=== PATIENT | female | born 1990 ===

== ENCOUNTER 2018-02-12 13:15 | Emergency (ER) | payer MEDICAID, OTHER ==
[2018-02-12 13:20] VITALS: RESP 16; O2SAT 98
--- NOTE | 2018-02-12 14:34 | ED PDOC ---
HPI: Female Pain Time Seen by Provider: 02/12/18 13:48 Chief Complaint (Nursing): Female Genitourinary Chief Complaint (Provider): Vaginal spotting History Per: Patient History/Exam Limitations: no limitations Additional Complaint(s): Pt reports vaginal spotting X 2 days, blood upon wiping, associated with crampy R sided lower abdominal pain, intermittent. Denies fever, nausea, vomiting. No care. Abnormal Vaginal Bleeding: Yes Last Menstral Period: 11/06/17 : 2 Para: 0 Miscarriage: 1 Past Medical History Reviewed: Nursing Documentation, Vital Signs Vital Signs: Last Vital Signs Temp 98 F 02/12/18 13:17 Pulse 97 H 02/12/18 13:17 Resp 16 02/12/18 13:17 BP 115/68 02/12/18 13:17 Pulse Ox 98 02/12/18 13:17 - Medical History PMH: No Chronic Diseases - Surgical History Surgical History: No Surg Hx - Family History Family History: States: Unknown Family Hx - Social History Current smoker - smoking cessation education provided: No Alcohol: None - Home Medications Home Medications: Ambulatory Orders Medication Instructions Recorded Vit Calc,Iron,Folic 1 each PO DAILY #30 tablet 02/12/18 [ Vitamins] - Allergies Allergies/Adverse Reactions: Allergies Allergy/AdvReac Type Severity Reaction Status Date / Time No Known Allergies Allergy Verified 02/12/18 13:17 Review of Systems Constitutional: Negative for: Fever, Chills Cardiovascular: Negative for: Chest Pain Respiratory: Negative for: Cough, Shortness of Breath Gastrointestinal: Positive for: Abdominal Pain. Negative for: Nausea, Vomiting , Diarrhea Genitourinary Female: Positive for: Vaginal Bleeding, Pelvic Pain. Negative for : Dysuria, Hematuria, Vaginal Discharge Skin: Negative for: Rash, Lesions Neurological: Negative for: Headache, Dizziness Physical Exam - Reviewed Nursing Documentation Reviewed: Yes Vital Signs Reviewed: Yes - Physical Exam Appears: Positive for: Well, No Acute Distress Head Exam: Positive for: ATRAUMATIC, NORMAL INSPECTION Skin: Positive for: Normal Color, Warm, Dry Eye Exam: Positive for: Normal appearance, EOMI, PERRL Cardiovascular/Chest: Positive for: Regular Rate, Rhythm Respiratory: Positive for: Normal Breath Sounds Gastrointestinal/Abdominal: Positive for: Normal Exam, Bowel Sounds, Soft. Negative for: Tenderness, Guarding, Rebound Extremity: Positive for: Normal ROM Neurologic/Psych: Positive for: Alert, Oriented - Laboratory Results Result Diagrams: 02/12/18 15:01 02/12/18 15:01 - ECG O2 Sat by Pulse Oximetry: 98 Medical Decision Making Medical Decision Makin yo with vaginal spotting. - labs - pelvic ultrasound Accession No. : [id number] Patient Name / ID : SHEBA YOO / [id number] Exam Date : 02/12/2018 16:48:07 ( Approved ) Study Comment : Sex / Age : F / 27Y Creator : Gonzalo Curry MD Dictator : Gonzalo Curry MD Boiler Attendant : Proof Carrier : Gonzalo Curry MD Approver2 : Report Date : 02/12/2018 18:09:27 My Comment : Date of service: 02/12/2018 PROCEDURE: Limited ultrasound HISTORY: Vag spotting COMPARISON: None available. TECHNIQUE: Standard protocol for this study/examination. FINDINGS: Variable presentation. Posterior Placenta. No evidence of abruption or previa Gestational age derived from LMP 14 weeks. ABDOULAYE 08/13/2018.. Gestational age derived from the following biometric parameters thirteen weeks. ABDOULAYE 08/20/2018. Biparietal diameter 2.07 cm Head circumference 7.38 cm Abdominal circumference 6.10 cm Femur length 0.9 cm Estimated weight 64.4 g Calculated cardiac rate 157 beats per min. Closed cervix measuring 3.99 cm IMPRESSION: Thirteen weeks live intrauterine gestation. Gestational concordance documented. Disposition - Clinical Impression Clinical Impression: Threatened in second trimester - Disposition [facility] Disposition: Routine/Home Disposition Time: 18:12 Condition: GOOD Prescriptions: Vit Calc,Iron,Folic [ Vitamins] 1 each PO DAILY #30 tablet Instructions: Threatened Miscarriage Forms: [facility] (Gu[place]ian)
[2018-02-12 15:06] LABS: BASO % 0.1 % (0.0-2.0); EOS % 0.1 % (0.0-4.0); HEMOGLOBIN 13.3 g/dL (12.0-16.0); LYMPH # 1.1 K/uL (1.0-4.3); LYMPH % 12.7 % (20.0-40.0); MEAN CORPUSCULAR HEMOGLOBIN 30.9 pg (27.0-31.0); MEAN CORPUSCULAR HGB CONC 34.7 g/dL (33.0-37.0); MEAN PLATELET VOLUME 9.6 fl (7.2-11.7); MONO # 0.4 K/uL (0.0-0.8); NEUT # 7.4 K/uL (1.8-7.0); NEUT % 83.1 % (50.0-75.0); NRBC % 0.1 % (0.0-0.0); RBC 4.29 Mil/uL (3.80-5.20); WHITE BLOOD COUNT 8.9 K/uL (4.8-10.8)
[2018-02-12 15:18] LABS: SQUAMOUS EPITHIAL 4 /hpf (0-5); URINE AMORPHOUS SEDIMENT RARE /ul (<OCC); URINE BACTERIA RARE (<OCC); URINE BILIRUBIN NEGATIVE (NEGATIVE); URINE BLOOD MODERATE (NEGATIVE); URINE CLARITY SLIGHTY-CLOUDY (Clear); URINE COLOR YELLOW (YELLOW); URINE GLUCOSE (UA) NEG (Normal); URINE LEUKOCYTE ESTERASE NEG Leu/uL (Negative); URINE PROTEIN NEGATIVE (NEGATIVE); URINE UROBILINOGEN 0.2-1.0 mg/dL (0.2-1.0)
[2018-02-12 15:21] LABS: ALB/GLOB RATIO 1.2 (1.0-2.1); ALT/SGPT 43 U/L (9-52); AST/SGOT 40 U/L (14-36); BLOOD UREA NITROGEN 8 mg/dl (7-17); CALCIUM 9.1 mg/dL (8.4-10.2); GFR AFRICAN-AMERICAN > 60; GFR NON-AFRICAN AMERICAN > 60
--- NOTE | 2018-02-12 18:11 | US ---
Date of service: 02/12/2018 PROCEDURE: Limited ultrasound HISTORY: Vag spotting COMPARISON: None available. TECHNIQUE: Standard protocol for this study/examination. FINDINGS: Variable presentation. Posterior Placenta. No evidence of abruption or previa Gestational age derived from LMP 14 weeks. ABDOULAYE 08/13/2018.. Gestational age derived from the following biometric parameters thirteen weeks. ABDOULAYE 08/20/2018. Biparietal diameter 2.07 cm Head circumference 7.38 cm Abdominal circumference 6.10 cm Femur length 0.9 cm Estimated weight 64.4 g Calculated cardiac rate 157 beats per min. Closed cervix measuring 3.99 cm IMPRESSION: Thirteen weeks live intrauterine gestation. Gestational concordance documented.
[2018-02-12 18:42] VITALS: BP 116/70; PULSE 84; TEMP 97.9
== END 2018-02-12 18:28 | disposition home or self-care (01) ==
LOC: H.ER 13:15
DX: O20.0 Threatened abortion (principal); Z3A.13 13 weeks gestation of pregnancy

== ENCOUNTER 2018-08-15 15:57 | Emergency (ER) | payer MEDICAID ==
--- NOTE | 2018-08-16 08:33 | OBHP ---
Datetime: 08/15/2018 16:21 IP Adm Impression: Term, intrauterine IP Admit Plan: Observation/Evaluation; Discharge home Admit Comment, IP Provider: 27yo IUP at 40+2w was sent from [facility] for NST since her NST in the clinic was non-reactive. Pt reports she feels good movement. Denies contractions, vaginal blee ding, and loss of fluid per the vagina. ROS: negative except for stated above in HPI ObHx: 1 misscarriage 3-4 years ago PMH: denies PSH: denies Allergies: N.K.D.A. PSoH denies smoking ETOH drugs Physical: Heart : s1 and S2 appreciated on exam. Lungs: clear bilaterally Abdomen: Gravid, non-tender; +bs Extremities: No lower extremity edema. A: 27yo with IUP at 40+2w presents for non-reactive NST in CHF - NST reactive - Patient scheduled for IOL 08/20/18 for late term @ 8m - Patient to go to her [facility] tomorrow 08/16/18 - Patient has a follow up appt in [facility] 08/19/[address] Sherry Mosher, PGY1 Pelvic Type - PN: Not Done Extremities - PN: Normal Abdomen - PN: Normal Back - PN: Normal Breast - PN: Not Done Lungs - PN: Normal Heart - PN: Normal Thyroid - PN: Not Done Neurologic - PN: Normal HEENT - PN: Normal General - PN: Normal FHR - Baseline A Provider: 135 Contraction Comments Provider: no contractions EGA AdmitDate IP: 40.0 Vital Signs Provider: Reviewed; Within Normal Limits IP Chief Complaint: Decreased movement NICHD Variability Prov Fetus A: Moderate 6-25bpm NICHD Accel Fetus A IP Provider: [id number] FHR Category Provider Fetus A: Category I NICHD Decel Fetus A IP Provider: None Genitourinary Exam: Not Done DTRs - PN: Not Done
== END 2018-08-15 16:10 | disposition home or self-care (01) ==
LOC: H.EROB2 15:57
DX: O76 Abnormality in fetal heart rate and rhythm complicating labor and delivery (principal); O48.0 Post-term pregnancy; Z3A.40 40 weeks gestation of pregnancy

== ENCOUNTER 2018-08-20 19:56 | Inpatient (IN) | payer MEDICAID ==
[2018-08-20 20:12] VITALS: BMI 27.1
[2018-08-20] MEDS ORDERED: Lactated Ringer's 1,000 ML IV ONE (20:39)
[2018-08-20] MEDS ORDERED: Oxytocin 30 UNIT 30 UNITS/500 ML BAG IV ONE (20:41)
[2018-08-20] MEDS ORDERED: OXYTOCIN/0.9 % NS 20 UNIT/1,000 ML BAG IV SCH (20:45)
[2018-08-20 21:22] LABS: BASO % 0.2 % (0.0-2.0); EOS % 0.5 % (0.0-4.0); HEMOGLOBIN 13.1 g/dL (12.0-16.0); LYMPH # 1.4 K/uL (1.0-4.3); LYMPH % 18.7 % (20.0-40.0); MEAN CELL VOLUME 91.5 fl (81.0-99.0); MEAN CORPUSCULAR HGB CONC 33.8 g/dL (33.0-37.0); MEAN PLATELET VOLUME 10.6 fl (7.2-11.7); MONO # 0.4 K/uL (0.0-0.8); NEUT # 5.4 K/uL (1.8-7.0); NEUT % 74.6 % (50.0-75.0); RBC 4.24 Mil/uL (3.80-5.20); RED CELL DISTRIBUTION WIDTH 12.9 % (11.5-14.5); WHITE BLOOD COUNT 7.3 K/uL (4.8-10.8)
--- NOTE | 2018-08-20 23:38 | OBADHP ---
Datetime: 08/20/2018 21:03 Admit Comment, IP Provider: 27yo IUP at 41wK based on LMP of 11/06/18 admitted for Induction o f labor for late term. Pt endorses good movement. Denies contractions, vaginal bleeding, and l oss of fluid per the vagina. ROS: negative except for stated above in HPI ObHx: 1 misscarriage 3-4 years ago; Dr. Jiménez and was last checked yesterday, one day prior to adm ission, and her exam was closed. PMH: denies PSH: denies Allergies: N.K.D.A. PSoH denies smoking ETOH drugs Labs:HIV: negative; GBS: negative; Rubella: immune; Gc/CL: negative; RPR: non-reactive; HbsAg: neg ative; ABO: O+; Antibody: negative Physical: Vital signs are stable. Heart : s1 and S2 appreciated on exam. Lungs: clear bilaterally Abdomen: Gravid, non-tender; +bs Extremities: No lower extremity edema._ Bedside ultrasound: Cephalic presentation. A: 27yo with IUP at 41wks admitted for IOL for late term. - Admit to L and D - CBC and Type and Screen - NST reactive- category 1 - Anesthesia consult - NPO - Induction with Cytotec 50mcg Q4H to begin after patient has a meal. Discussed with Dr. Sweta Mosher, PGY1 Addendum by Dr. Sol: I have evaluated the patient independently and I agree with the above Pelvic Type - PN: Adequate Extremities - PN: Normal Abdomen - PN: Normal Back - PN: Normal Breast - PN: Not Done Lungs - PN: Normal Heart - PN: Normal Thyroid - PN: Normal Neurologic - PN: Normal HEENT - PN: Normal General - PN: Normal FHR - Baseline A Provider: 150 Vital Signs Provider: Reviewed; Within Normal Limits IP Chief Complaint: Scheduled induction of labor NICHD Variability Prov Fetus A: Moderate 6-25bpm NICHD Accel Fetus A IP Provider: 15X15 FHR Category Provider Fetus A: Category I NICHD Decel Fetus A IP Provider: None Genitourinary Exam: Normal DTRs - PN: Not Done EGA AdmitDate IP: 40.5 IP Adm Impression: Postterm, intrauterine ; No Active Labor IP Admit Plan: Admit to unit; Initiate labor induction protocol Datetime: 08/15/2018 16:21 Contraction Comments Provider: no contractions
[2018-08-21] MEDS: Lactated Ringer's 1,000 ML IV SCH ×3 (07:30→17:40)
[2018-08-21] MEDS ORDERED: Nalbuphine HCL 10 mg/ml Ampule IVP PRN ×2 (17:28→21:35)
[2018-08-21] MEDS ORDERED: Nalbuphine 20 mg/ml Inj (10 ml) ONE ×2 (17:36→21:43)
[2018-08-22] MEDS ORDERED: Lactated Ringer's 1,000 ML IV SCH (00:43)
[2018-08-22] MEDS ORDERED: Fentanyl/Bupivacaine HCl 250 ML EPI ONE (01:07)
[2018-08-22] MEDS ORDERED: Lidocaine 1% MPF (30 ml) Inj ONE (09:13)
[2018-08-22] MEDS ORDERED: Oxytocin 30 UNIT 30 UNITS/500 ML BAG IV ONE (09:53)
[2018-08-22] MEDS ORDERED: Benzocaine/Menthol SPRAY TOP PRN ×2 (10:28→10:37)
[2018-08-22] MEDS ORDERED: Oxycodone/Acetaminophen 5/325 mg Tab PO PRN ×2 (10:28→10:37)
[2018-08-23 06:39] LABS: BASO % 0.1 % (0.0-2.0); EOS # 0.1 K/uL (0.0-0.7); EOS % 0.4 % (0.0-4.0); HEMOGLOBIN 11.5 g/dL (12.0-16.0); LYMPH # 1.4 K/uL (1.0-4.3); LYMPH % 10.7 % (20.0-40.0); MEAN CELL VOLUME 92.1 fl (81.0-99.0); MEAN CORPUSCULAR HEMOGLOBIN 30.6 pg (27.0-31.0); MEAN CORPUSCULAR HGB CONC 33.2 g/dL (33.0-37.0); MEAN PLATELET VOLUME 9.9 fl (7.2-11.7); MONO # 0.8 K/uL (0.0-0.8); MONO % 6.3 % (0.0-10.0); NEUT # 10.8 K/uL (1.8-7.0); NEUT % 82.5 % (50.0-75.0); NRBC % 0.1 % (0.0-0.0); RBC 3.78 Mil/uL (3.80-5.20); WHITE BLOOD COUNT 13.1 K/uL (4.8-10.8)
--- NOTE | 2018-08-23 08:06 | OBPPN ---
Datetime: 08/23/2018 05:35 PP Pain Prov: Within normal limits PP Nausea Prov: Denies PP Flatus Prov: Yes PP BM Prov: No PP Breasts Prov: Not Done PP Heart Prov: Normal PP Lungs Prov: Normal PP Abdomen/Uterus Prov: Normal PP Lochia Prov: Normal PP Vulva/Perineum Prov: Normal PP CVA Tenderness Prov: Normal PP Extremities Prov: Normal PP C/S Incision Prov: Not Applicable PP Progress Prov: Normal PP Impression Prov: Normal progression PP Plan Prov: Continue present management PP Progress Note Prov: S: 27 yo s/p on 08/22/18, PPD1. Pt was seen and examined at bed side this AM. No overnight events. Pain is minimal. Ambulating and tolerating PO diet without difficu lty. Breast feeding exclusively. Lochia < menses. +Flatus/- BM. Denies dizziness, orthostatic change s, changes in vision, palpitations, chest pain, fever, chills, diarrhea, nausea and vomiting. O: VS: Stable overnight GEN: NAD Cardio: S1S2, no murmurs Lungs: clear breath sounds b/l, no wheezing Abdomen: BS+, appropriate tenderness to palpation. Uterus is firm and at the level of the umbilic us. EXT: No edema, calves non-tender NEURO/PSYCH: AAOx3, no grossly focal deficits, preserved affect and mood. H/H: aCBC: 13.1/38.3 pCBC: pending Assessment/Plan: 27 yo s/p on 08/22/18, PPD1. Pt remains afebrile, tolerating pain. -Regular diet -Anticipate discharge 08/24 -Continue with current management -Encourage and ambulating -Colace 100mg BID -Ibuprofen 600mg q6 for pain Mey Mosher, PGY 1 Attending addendum: I saw and examined the patient at bedside myself. I reviewed the resident note above and agree wit h findings and management. Anticipate DC home tomorrow. Belen Bingham MD IP PP Procedures: None Vital Signs Provider PP: Reviewed; Within Normal Limits
[2018-08-23] MEDS ORDERED: Multivitamin With Minerals Tab PO SCH (09:00)
--- NOTE | 2018-08-23 09:01 | OBDS ---
DELIVERY PERSONNEL Delivery Doctor: Karis Powell MD City Bus Driver: Malissa Osborn RN Anesthesiologist: Dr. Bronson MATERNAL INFORMATION Delivery Anesthesia: Epidural Medications in Delivery: Pitocin 30u/500mL of NS, Lidocaine 1% Placenta Cultured: No Maternal Complications: None Provider Comments: Normal spontaneous vaginal delivery. Patient delivered viable infant with Apgars of 9 and 9 at 1 and 5 minutes respectively. de livered via ESTEVAN position. Placenta delivered spontaneously. Lacerations were repaired, as above. U terus firm and appropriately hemostatic following delivery. Patient tolerated delivery and repair we ll. Estimated blood loss 200 cc. LABOR SUMMARY EDC: 08/15/2018 00:00 No. Babies in Womb: 1 Attempted: No Labor Anesthesia: Epidural LABOR INFORMATION Reason for Induction: Postterm Onset of Labor: 08/22/2018 04:13 Complete Dilatation: 08/22/2018 06:43 Cervical Ripening Agents: Cervidil Oxytocin: N/A Group B Beta Strep: Negative Antibiotics # of Doses: n/a Antibiotics Time of Last Dose: n/a Steroids Given: None Reason Steroids Not Administered: Not Applicable MEMBRANES Membranes Rupture Method: Spontaneous Rupture of Membranes: 08/22/2018 04:35 Length of Rupture (hrs): 5.22 Amniotic Fluid Color: Bloody Amniotic Fluid Amount: Moderate Amniotic Fluid Odor: Normal STAGES OF LABOR Stage 1 hrs: 2 Stage 1 min: 30 Stage 2 hrs: 3 Stage 2 min: 5 Stage 3 hrs: 0 Stage 3 min: 4 Total Time in Labor hrs: 5 Total Time in Labor min: 39 VAGINAL DELIVERY Laceration Extension: First Degree Laceration Type: Vaginal Laceration Repair: Yes Laceration Repair Note: First-degree bilateral vaginal lacerations. Area is infiltrated with 1% lid ocaine. Laceration was repaired with 2.0 repeated without complication. Patient tolerated repair as well. Initial Vag Sponge Count: 15 Final Vag Sponge Count: 15 Initial Vag Sharps Count: 3 Final Vag Sharps Count: 3 Sponge Count Correct: Yes Sharps Count Correct: Yes BABY A INFORMATION Infant Delivery Date/Time: 08/22/2018 09:48 Method of Delivery: Vaginal Born in Route : No : N/A Forceps: N/A Vacuum Extraction: N/A Shoulder Dystocia : No SHOULDER DYSTOCIA BABY A Delivery Date/Time: 08/22/2018 09:48 PRESENTATION/POSITION BABY A Presentation: Cephalic Cephalic Presentation: Vertex Breech Presentation: N/A PLACENTA INFORMATION BABY A Placenta Delivery Time : 08/22/2018 09:52 Placenta Method of Delivery: Spontaneous Placenta Status: Delivered SCORES BABY A Heart Rate 1 min: >100 bpm Resp Effort 1 min: Good Cry Reflex Irritability 1 min: Cough or Sneeze or Pulls Away Muscle Tone 1 min: Active Motion Color 1 min: Body [place], Extremities Blue Resuscitation Effort 1 min: Tactile Stimulation SCORE 1 MIN: 9 Heart Rate 5 min: >100 bpm Resp Effort 5 min: Good Cry Reflex Irritability 5 min: Cough or Sneeze or Pulls Away Muscle Tone 5 min: Active Motion Color 5 min: Body [place], Extremities Blue Resuscitation Effort 5 min: N/A SCORE 5 MIN: 9 INFORMATION BABY A Gestational Age at Delivery: 41.0 Gestational Status: Term Outcome : Liveborn Condition : Stable Infant Sex: Female IDENTIFICATION/MEDS BABY A ID Band Number: [id number] ID Band Location: Left Leg; Left Arm WEIGHT/LENGTH BABY A Birthweight (gms): 3115 Weight (lb): 6 Infant Weight (oz): 14 CORD INFORMATION BABY A No. Cord Vessels: 3 Nuchal Cord : N/A Cord Blood Taken: Yes Suction: None; Mouth
--- NOTE | 2018-08-23 09:06 | OBDS ---
DELIVERY PERSONNEL Delivery Doctor: Karis Powell MD Motion Picture Commentator: Malissa Osborn RN Anesthesiologist: Dr. Bronson MATERNAL INFORMATION Delivery Anesthesia: Epidural Medications in Delivery: Pitocin 30u/500mL of NS, Lidocaine 1% Placenta Cultured: No Maternal Complications: None Provider Comments: Normal spontaneous vaginal delivery. Patient delivered viable infant with Apgars of 9 and 9 at 1 and 5 minutes respectively. de livered via ESTEVAN position. Placenta delivered spontaneously. Lacerations were repaired, as above. U terus firm and appropriately hemostatic following delivery. Patient tolerated delivery and repair we ll. Estimated blood loss 200 cc. LABOR SUMMARY EDC: 08/15/2018 00:00 No. Babies in Womb: 1 Attempted: No Labor Anesthesia: Epidural LABOR INFORMATION Reason for Induction: Postterm Onset of Labor: 08/22/2018 04:13 Complete Dilatation: 08/22/2018 06:43 Cervical Ripening Agents: Cervidil Cervical Ripening Agents: Cytotec @ 50mcg Cervical Ripening Agents: Cytotec @ 50mcg Cervical Ripening Agents: Cytotec @ 50 mcg of cytotec administered PO as per Dr. Sol Cervical Ripening Agents: Cytotec @ 50 MG Oxytocin: N/A Group B Beta Strep: Negative Antibiotics # of Doses: n/a Antibiotics Time of Last Dose: n/a Steroids Given: None Reason Steroids Not Administered: Not Applicable MEMBRANES Membranes Rupture Method: Spontaneous Rupture of Membranes: 08/22/2018 04:35 Length of Rupture (hrs): 5.22 Amniotic Fluid Color: Bloody Amniotic Fluid Amount: Moderate Amniotic Fluid Odor: Normal STAGES OF LABOR Stage 1 hrs: 2 Stage 1 min: 30 Stage 2 hrs: 3 Stage 2 min: 5 Stage 3 hrs: 0 Stage 3 min: 4 Total Time in Labor hrs: 5 Total Time in Labor min: 39 VAGINAL DELIVERY Laceration Extension: First Degree Laceration Type: Vaginal Laceration Repair: Yes Laceration Repair Note: First-degree bilateral vaginal lacerations. Area is infiltrated with 1% lid ocaine. Laceration was repaired with 2.0 repeated without complication. Patient tolerated repair as well. Initial Vag Sponge Count: 15 Final Vag Sponge Count: 15 Initial Vag Sharps Count: 3 Final Vag Sharps Count: 3 Sponge Count Correct: Yes Sharps Count Correct: Yes BABY A INFORMATION Delivery Date/Time: 08/22/2018 09:48 Method of Delivery: Vaginal Born in Route : No : N/A Forceps: N/A Vacuum Extraction: N/A Shoulder Dystocia : No SHOULDER DYSTOCIA BABY A Infant Delivery Date/Time: 08/22/2018 09:48 PRESENTATION/POSITION BABY A Presentation: Cephalic Cephalic Presentation: Vertex Breech Presentation: N/A PLACENTA INFORMATION BABY A Placenta Delivery Time : 08/22/2018 09:52 Placenta Method of Delivery: Spontaneous Placenta Method of Delivery: Spontaneous Placenta Status: Delivered SCORES BABY A Heart Rate 1 min: >100 bpm Resp Effort 1 min: Good Cry Reflex Irritability 1 min: Cough or Sneeze or Pulls Away Muscle Tone 1 min: Active Motion Color 1 min: Body [place], Extremities Blue Resuscitation Effort 1 min: Tactile Stimulation SCORE 1 MIN: 9 Heart Rate 5 min: >100 bpm Resp Effort 5 min: Good Cry Reflex Irritability 5 min: Cough or Sneeze or Pulls Away Muscle Tone 5 min: Active Motion Color 5 min: Body [place], Extremities Blue Resuscitation Effort 5 min: N/A SCORE 5 MIN: 9 INFANT INFORMATION BABY A Gestational Age at Delivery: 41.0 Gestational Status: Term Infant Outcome : Liveborn Infant Condition : Stable Infant Sex: Female Infant Sex: Female IDENTIFICATION/MEDS BABY A ID Band Number: [id number] ID Band Location: Left Leg; Left Arm WEIGHT/LENGTH BABY A Birthweight (gms): 3115 Infant Weight (lb): 6 Infant Weight (oz): 14 CORD INFORMATION BABY A No. Cord Vessels: 3 Nuchal Cord : N/A Cord Blood Taken: Yes Suction: None; Mouth
[2018-08-23] MEDS: Multivitamin With Minerals Tab PO SCH (09:13)
--- NOTE | 2018-08-24 07:22 | OBPPN ---
Datetime: 08/24/2018 05:55 PP Pain Prov: Within normal limits PP Nausea Prov: Denies PP Flatus Prov: Yes PP BM Prov: Yes PP Breasts Prov: Not Done PP Heart Prov: Normal PP Lungs Prov: Normal PP Abdomen/Uterus Prov: Normal PP Lochia Prov: Normal PP Vulva/Perineum Prov: Normal PP CVA Tenderness Prov: Normal PP Extremities Prov: Normal PP C/S Incision Prov: Not Applicable PP Progress Prov: Normal PP Impression Prov: Normal progression PP Plan Prov: Continue present management PP Progress Note Prov: S: 27 yo s/p on 08/22/18, PPD2. Pt was seen and examined at bed side this AM. No overnight events. Pain is minimal. Ambulating and tolerating PO diet without difficu lty. Breast feeding exclusively. Lochia < menses. +Flatus/- BM. Denies dizziness, orthostatic change s, changes in vision, palpitations, chest pain, fever, chills, diarrhea, nausea and vomiting. O: VS: Stable overnight GEN: NAD Cardio: S1S2, no murmurs Lungs: clear breath sounds b/l, no wheezing Abdomen: BS+, appropriate tenderness to palpation. Uterus is firm and at the level of the umbilic us. EXT: No edema, calves non-tender NEURO/PSYCH: AAOx3, no grossly focal deficits, preserved affect and mood. H/H: aCBC: 13.1/38.3 pCBC: pending Assessment/Plan: 27 yo s/p on 08/22/18, PPD2. Pt remains afebrile, tolerating pain. -Regular diet -Discharge today 08/24 -Continue with current management -Encourage and ambulating -Colace 100mg BID -Ibuprofen 600mg q6 for pain Mey Mosher, PGY 1 OB Hospitalist Addendum: Pt seen and examined by me. Agree w/ above. PPD 2 s/p , doing well, breast and bottle feeding. Discharge home today. (ES) IP PP Procedures: None Vital Signs Provider PP: Reviewed; Within Normal Limits
[2018-08-24] MEDS: Multivitamin With Minerals Tab PO SCH (08:24)
[2018-08-24 19:03] VITALS: BP 117/71; PULSE 106; RESP 20; TEMP 98; O2SAT 100
== END 2018-08-24 12:00 | disposition home or self-care (01) | DRG 373 ==
LOC: H.L&D 20:39 → H.OB/GYN 08-22 12:33
PROVIDERS: ADMIT Obstetrics & Gynecology; ATTEND Obstetrics & Gynecology
PROC: 0HQ9XZZ Repair Perineum Skin, External Approach (ICD-10-PCS; 2018-08-20)
PROC: 10E0XZZ Delivery of Products of Conception, External Approach (ICD-10-PCS; principal; 2018-08-22)
PROC: 4A1HXCZ Monitoring of Products of Conception, Cardiac Rate, External Approach (ICD-10-PCS; 2018-08-22)
DX: O48.0 Post-term pregnancy (principal); Z3A.41 41 weeks gestation of pregnancy; O70.0 First degree perineal laceration during delivery; Z37.0 Single live birth